=== PATIENT | female | born 1980 | race Caucasian/White ===

== ENCOUNTER 2016-08-02 23:23 | Inpatient (IN) | payer MEDICAID ==
--- NOTE | 2016-08-02 13:24 | HISTORY & PHYSICAL ---
DATE OF ADMISSION: 08/02/16 ATTENDING PHYSICIAN: Nora Ward MD HISTORY OF PRESENTATION: This is a 36-year-old 3, para 0 at 39-2/7 weeks who is presenting for elective Cytotec induction. She actually lives in [place]. 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 She underwent surgery at [facility] on 04/07/16 for removal of this mass. It was benign and she suffered no complications and no signs of labor. PAST MEDICAL HISTORY: Benign except for mild acne. PAST SURGICAL HISTORY: Gaines teeth. SOCIAL HISTORY: She quit tobacco and marijuana with a positive test. Her boyfriend is Ish who has been very involved. 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 FAMILY HISTORY: Her father at age 59 of a myocardial infarction, he was a smoker. MEDICATIONS: vitamins and Tums. She advanced to Prilosec and also used Colace for constipation. ALLERGIES: None. LABS: She is 0 positive. Antibody screen negative. Rubella immune. Serology was nonreactive. Hemoglobin and hematocrit were 13.7 and 40. HIV was nonreactive. Her initial urine culture was negative. Her group B strep was negative. She had first trimester risk assessment which revealed normal chromosomes for trisomy 13, 18 and 21, and she will be having a baby boy. Her MSAFP was negative. Her one-hour glucose tolerance test was 111. She had a negative Pap and HPV test 10/2014. PHYSICAL EXAMINATION VITAL SIGNS: Blood pressure 121/70, weight 155 pounds. HEENT: Normocephalic atraumatic. Pupils equal, round and reactive. Mucous membranes are moist. NECK: Supple with no thyromegaly. CARDIAC: Regular rate and rhythm. LUNGS: Clear. ABDOMEN: Fundal height of 38 cm. Heart tones were in the 140s. OB: Sterile vaginal exam showed a fingertip dilation and about 30% effaced, -2 station. ASSESSMENT AND PLAN: Term of advanced maternal age. Will plan on Cytotec induction. [facility]
[2016-08-03] MEDS ORDERED: HOME MEDICATION LIST NEEDED 1 EA EACH MISC ONE (00:48)
[2016-08-03] MEDS ORDERED: TERBUTALINE SULFATE 1 MG/ML VIAL SQ PRN ×2 (00:48→09:03)
[2016-08-03] MEDS ORDERED: ONDANSETRON HCL 4 MG/2 ML VIAL IV PRN ×3 (00:48→09:03)
[2016-08-03] MEDS ORDERED: MISOPROSTOL 200 MCG TABLET PO PRN ×2 (00:48→09:03)
[2016-08-03] MEDS ORDERED: OXYTOCIN/NORMAL SALINE 30 UNIT/500 ML BAG IV SCH ×2 (00:48→09:03)
[2016-08-03] MEDS ORDERED: MISOPROSTOL 25 MCG CAPSULE VAG SCH (00:48)
[2016-08-03] MEDS ORDERED: LIDOCAINE HCL/PF 1% 30 ML VIAL SUBCUT PRN ×2 (00:48→09:03)
[2016-08-03] MEDS ORDERED: FENTANYL 100 MCG/2 ML VIAL IV ONE (00:48)
[2016-08-03 00:53] LABS: BASOPHILS 0.3 % (0.0-2.0); EOSINOPHILS 0.8 % (0.0-6.0); EOSINOPHILS# 0.1 X 10^3uL (0.0-0.4); HEMATOCRIT 42.5 % (36.0-48.0); HEMOGLOBIN 14.4 g/dL (12.0-16.0); LYMPHOCYTES 29.4 % (20.0-40.0); LYMPHOCYTES# 2.6 X 10^3uL (0.8-3.8); MEAN CELL VOLUME 95.6 fL (80.0-100.0); MEAN CORPUSCULAR HEMOGLOBIN 32.4 pg (29.0-35.0); MEAN PLATELET VOLUME 10.3 fL (7.4-10.4); MONOCYTES 9.1 % (2.0-10.0); MONOCYTES# 0.8 X 10^3uL (0.2-1.0); NEUTROPHILS 60.4 % (54.0-75.0); NEUTROPHILS# 5.4 X 10^3uL (2.6-6.7); PLATELET COUNT 223 X 10^3uL (130-440); RED BLOOD COUNT 4.45 X 10^6uL (4.20-6.10); RED CELL DISTRIBUTION WIDTH 12.7 % (11.5-14.5); WHITE BLOOD COUNT 8.9 X 10^3uL (3.9-10.7)
--- NOTE | 2016-08-03 01:32 | PROGRESS NOTE:Antepartum ---
Assessment and Plan - Date of Encounter Date of Encounter: 08/03/16 (1) Elderly primigravida in third trimester Status: Acute Assessment and plan: Pt given option of expectant management but lives 3.5 hours from hospital She agrees to have cytotec induction of labor. GBS neg. Current Visit: Yes (2) Residence remote from hospital or health care facility Status: Acute Current Visit: Yes - Time Spent With Patient Total time spent with greater than 50% in coordination of care (as documented) at patient's floor/unit and/or counseling patient: SCOUT LEASER: Antepartum PN Subj - Subjective Interval history: 36 hx 2 SAB's presented for elective cytotec induction at 39 3/7 due to distance to hospital. Patient reports: appetite normal, voiding normally Antepartum ROS: contractions (irreg), movement normal, no vaginal bleeding , no loss of fluid, no abdominal pain, no headache, no shortness of breath, no swelling SCOUT LEASER: Antepartum PN Obj Exam - Latest Vital Signs and I&O Latest Vital Signs/I&O: Intake & Output 08/02/16 08/02/16 08/03/16 05:59 17:59 05:59 Weight 70.307 kg - Exam Heart Monitor: category I Lungs: Bilateral: normal Heart Rhythm: Present: regular Heart sounds: Absent: Mur[place]ur Extremities: Absent: edema Cervical Dilatation Degree: 1 Cervical Effacement Percentage: 30 Station: -2 - Lab Labs: Laboratory Last Values WBC 8.9 X 10^3uL (3.9-10.7) 08/03/16 00:20 RBC 4.45 X 10^6uL (4.20-6.10) 08/03/16 00:20 Hgb 14.4 g/dL (12.0-16.0) 08/03/16 00:20 Hct 42.5 % (36.0-48.0) 08/03/16 00:20 MCV 95.6 fL (80.0-100.0) 08/03/16 00:20 MCH 32.4 pg (29.0-35.0) 08/03/16 00:20 MCHC 34.0 g/dL (32.0-36.0) 08/03/16 00:20 RDW 12.7 % (11.5-14.5) 08/03/16 00:20 Plt Count 223 X 10^3uL (130-440) 08/03/16 00:20 MPV 10.3 fL (7.4-10.4) 08/03/16 00:20 Neutrophils % 60.4 % (54.0-75.0) 08/03/16 00:20 Lymphocytes % 29.4 % (20.0-40.0) 08/03/16 00:20 Eosinophils % 0.8 % (0.0-6.0) 08/03/16 00:20 Basophils % 0.3 % (0.0-2.0) 08/03/16 00:20 Neutrophils # 5.4 X 10^3uL (2.6-6.7) 08/03/16 00:20 Lymphocytes # 2.6 X 10^3uL (0.8-3.8) 08/03/16 00:20 Monocytes 9.1 % (2.0-10.0) 08/03/16 00:20 Monocytes # 0.8 X 10^3uL (0.2-1.0) 08/03/16 00:20 Eosinophils # 0.1 X 10^3uL (0.0-0.4) 08/03/16 00:20 Basophils # 0.0 X 10^3uL (0.0-0.1) 08/03/16 00:20
[2016-08-03 01:49] LABS: ABO GROUP TYPE O; ANTIBODY SCREEN NEGATIVE; RH TYPE POSITIVE
[2016-08-03] MEDS: MISOPROSTOL 25 MCG CAPSULE VAGINALLY SCH ×3 (04:28→11:55)
--- NOTE | 2016-08-03 05:55 | PROGRESS NOTE:Antepartum ---
Assessment and Plan - Date of Encounter Date of Encounter: 08/03/16 (1) Elderly primigravida in third trimester Status: Acute Assessment and plan: Pt given option of expectant management but lives 3.5 hours from hospital She agrees to have cytotec induction of labor. GBS neg. Will have to watch FHR. Concerned to have variables this early but in setting of accels. and good variability. Continue current management. Watch closely. Concern shared with patient. 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 Baby has intermittent variables but good variability. Still has accels as well. Patient reports: appetite normal, voiding normally Antepartum ROS: contractions (irreg), movement normal, no vaginal bleeding , no loss of fluid, no abdominal pain, no headache, no shortness of breath, no swelling FACILITY MAINTENANCE MECHANIC: Antepartum PN Obj Exam - Latest Vital Signs and I&O Latest Vital Signs/I&O: Vital Signs Temp 36.4 C L 08/03/16 04:13 Pulse 48 L 08/03/16 04:13 Resp 18 08/03/16 04:13 BP 121/82 08/03/16 04:13 Pulse Ox 93 08/03/16 00:48 Intake & Output 08/02/16 08/02/16 08/03/16 05:59 17:59 05:59 Weight 70.307 kg Other: Voiding Method Toilet - Exam Heart Monitor: category II Lungs: Bilateral: normal Heart Rhythm: Present: regular Heart sounds: Absent: Murrmur Extremities: Absent: edema Cervical Dilatation Degree: 1 Cervical Effacement Percentage: 60 Station: -2 - Lab Labs: Laboratory Last Values WBC 8.9 X 10^3uL (3.9-10.7) 08/03/16 00:20 RBC 4.45 X 10^6uL (4.20-6.10) 08/03/16 00:20 Hgb 14.4 g/dL (12.0-16.0) 08/03/16 00:20 Hct 42.5 % (36.0-48.0) 08/03/16 00:20 MCV 95.6 fL (80.0-100.0) 08/03/16 00:20 MCH 32.4 pg (29.0-35.0) 08/03/16 00:20 MCHC 34.0 g/dL (32.0-36.0) 08/03/16 00:20 RDW 12.7 % (11.5-14.5) 08/03/16 00:20 Plt Count 223 X 10^3uL (130-440) 08/03/16 00:20 MPV 10.3 fL (7.4-10.4) 08/03/16 00:20 Neutrophils % 60.4 % (54.0-75.0) 08/03/16 00:20 Lymphocytes % 29.4 % (20.0-40.0) 08/03/16 00:20 Eosinophils % 0.8 % (0.0-6.0) 08/03/16 00:20 Basophils % 0.3 % (0.0-2.0) 08/03/16 00:20 Neutrophils # 5.4 X 10^3uL (2.6-6.7) 08/03/16 00:20 Lymphocytes # 2.6 X 10^3uL (0.8-3.8) 08/03/16 00:20 Monocytes 9.1 % (2.0-10.0) 08/03/16 00:20 Monocytes # 0.8 X 10^3uL (0.2-1.0) 08/03/16 00:20 Eosinophils # 0.1 X 10^3uL (0.0-0.4) 08/03/16 00:20 Basophils # 0.0 X 10^3uL (0.0-0.1) 08/03/16 00:20 ABO Group Type o 08/03/16 00:20 Rh Factor Positive 08/03/16 00:20 Antibody Screen Negative 08/03/16 00:20
[2016-08-03] MEDS: LACTATED RINGERS 1,000 ML IV SCH ×3 (06:33→15:11)
[2016-08-03] MEDS ORDERED: LACTATED RINGERS 1,000 ML IV ONE (06:36)
--- NOTE | 2016-08-03 06:51 | PROGRESS NOTE:Antepartum ---
Assessment and Plan - Date of Encounter Date of Encounter: 08/03/16 (1) Elderly primigravida in third trimester Status: Acute Assessment and plan: Baby with non reasurring FHT's at only 1 cm and recurrent late decelerations. I do not feel this baby will be able to tolerate labor. Informed consent obtained and family agrees to proceed with LTCS. 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 They last 30-90 seconds. I am not comfortable proceeding with labor given late decelerations at only 1 cm and not in active labor. Plan for LTCS. Discussed concerns with patient and she agrees. Patient reports: appetite normal, voiding normally Antepartum ROS: contractions (irreg), movement normal, no vaginal bleeding , no loss of fluid, no abdominal pain, no headache, no shortness of breath, no swelling S3B MULTI SENSOR OPERATOR: Antepartum PN Obj Exam - Latest Vital Signs and I&O Latest Vital Signs/I&O: Vital Signs Temp 36.5 C 08/03/16 06:21 Pulse 55 L 08/03/16 06:21 Resp 18 08/03/16 06:21 BP 116/76 08/03/16 06:21 Pulse Ox 93 08/03/16 00:48 Intake & Output 08/02/16 08/03/16 08/03/16 17:59 05:59 17:59 Weight 70.307 kg Other: Voiding Method Toilet - Exam Heart Monitor: category III Lungs: Bilateral: normal Heart Rhythm: Present: regular Heart sounds: Absent: Murrmur Extremities: Absent: edema Cervical Dilatation Degree: 1 Cervical Effacement Percentage: 70 Station: -2 - Lab Labs: Laboratory Last Values WBC 8.9 X 10^3uL (3.9-10.7) 08/03/16 00:20 RBC 4.45 X 10^6uL (4.20-6.10) 08/03/16 00:20 Hgb 14.4 g/dL (12.0-16.0) 08/03/16 00:20 Hct 42.5 % (36.0-48.0) 08/03/16 00:20 MCV 95.6 fL (80.0-100.0) 08/03/16 00:20 MCH 32.4 pg (29.0-35.0) 08/03/16 00:20 MCHC 34.0 g/dL (32.0-36.0) 08/03/16 00:20 RDW 12.7 % (11.5-14.5) 08/03/16 00:20 Plt Count 223 X 10^3uL (130-440) 08/03/16 00:20 MPV 10.3 fL (7.4-10.4) 08/03/16 00:20 Neutrophils % 60.4 % (54.0-75.0) 08/03/16 00:20 Lymphocytes % 29.4 % (20.0-40.0) 08/03/16 00:20 Eosinophils % 0.8 % (0.0-6.0) 08/03/16 00:20 Basophils % 0.3 % (0.0-2.0) 08/03/16 00:20 Neutrophils # 5.4 X 10^3uL (2.6-6.7) 08/03/16 00:20 Lymphocytes # 2.6 X 10^3uL (0.8-3.8) 08/03/16 00:20 Monocytes 9.1 % (2.0-10.0) 08/03/16 00:20 Monocytes # 0.8 X 10^3uL (0.2-1.0) 08/03/16 00:20 Eosinophils # 0.1 X 10^3uL (0.0-0.4) 08/03/16 00:20 Basophils # 0.0 X 10^3uL (0.0-0.1) 08/03/16 00:20 ABO Group Type o 08/03/16 00:20 Rh Factor Positive 08/03/16 00:20 Antibody Screen Negative 08/03/16 00:20
[2016-08-03] MEDS ORDERED: MORPHINE SULFATE/PF 10 MG/10 ML VIAL ONE (06:56)
[2016-08-03] MEDS ORDERED: FENTANYL 100 MCG/2 ML VIAL ONE (06:57)
[2016-08-03] MEDS ORDERED: EPHEDrine SULFATE 50 MG/ML VIAL ONE (07:39)
[2016-08-03] MEDS ORDERED: OXYTOCIN 10 UNITS/ML VIAL ONE ×2 (07:40)
[2016-08-03] MEDS ORDERED: ceFAZolin 1 GM/10 ML VIAL ONE (07:53)
[2016-08-03] MEDS ORDERED: DIPHENHYDRAMINE 25 MG CAPSULE PO PRN (09:03)
[2016-08-03] MEDS ORDERED: FENTANYL 100 MCG/2 ML VIAL IV PRN (09:03)
[2016-08-03] MEDS ORDERED: DIPHENHYDRAMINE 50 MG/ML VIAL IV PRN (09:03)
[2016-08-03] MEDS ORDERED: MORPHINE SULFATE 10 MG/ML SYR IV PRN (09:03)
[2016-08-03] MEDS ORDERED: NALOXONE HCL 0.4 MG/ML VIAL IV PRN ×3 (09:03)
[2016-08-03] MEDS ORDERED: NALBUPHINE HCL 10 MG/ML AMP IV PRN (09:03)
[2016-08-03] MEDS ORDERED: SIMETHICONE CHEW 80 MG TABLET PO PRN (09:57)
[2016-08-03] MEDS ORDERED: LANOLIN CREAM 1 APP/7 GM TUBE TOPICAL PRN (09:57)
[2016-08-03] MEDS ORDERED: MAGNESIUM HYDROXIDE 30 ML UDC PO PRN (09:57)
[2016-08-03] MEDS ORDERED: MEPERIDINE HCL/PF 50 MG/ML SYR IV PRN (09:57)
--- NOTE | 2016-08-03 10:12 | OPERATIVE NOTE: C-Section ---
- Operative Report Date of procedure: 08/03/16 Pre-Op Diagnosis: Non-reassuring FHT's remote from delivery Post-op diagnosis: same Procedure: LTCS Anesthesia Type: Spinal Estimated Blood Loss: 700 Pathology: none sent Sponge and instrument counts: correct X-ray taken: No Estimated Gestational Age (weeks): 39 Delivery Presentation: vertex Heart Monitor: category III Intrapartum Events: recurrent late decelerations, recurrant variable decelerations Amniotic Fluid: clear Cord Vessel Description: 3 Vessels Nuchal Cord # of Loops: 0 Cord clamped: Yes Cord blood obtained: Yes at 1 minute: 7 at 5 minutes: 8 Infant Gender: Male Weight: 3.012 kg Delivery Complications: Present: none Narrative: dictated Condition: stable Disposition: floor
[2016-08-03] MEDS ORDERED: MISOPROSTOL 25 MCG CAPSULE VAGINALLY SCH (11:00)
[2016-08-03] MEDS: ACETAMINOPHEN 1,000 MG/100 ML VIAL IV SCH ×3 (11:09→18:25)
--- NOTE | 2016-08-03 14:20 | OPERATIVE REPORT ---
DATE OF ADMISSION: 08/02/16 ATTENDING PHYSICIAN: Nora Ward MD HISTORY: This is a 36-year-old 3, para 0, 2 previous TABs who presented for Cytotec induction. She was 39-3/7 weeks. When she first arrived she a variable, but this was followed by 30 minutes of a reactive strip with excellent accelerations and no variables. She received her first dose of Cytotec. She had occasional variables, but continued to have good variability as well as accelerations. She received a second dose of Cytotec and had increasing frequency of variables that now appear to be late variables. She had 2 episodes where she was down into the 70s for about 2-3 minutes. In between she would have good variability and accelerations but she definitely had a pattern of recurring late decelerations. She was only fingertip and thick, and I was concerned that her infant would not tolerate labor, and after discussion with the patient, we agreed to perform a Caesarean section. PROCEDURE: Patient was taken to the operating room where a spinal anesthetic was placed. A time out was taken and the patient and procedure were correctly identified. She was then prepped and draped in a sterile fashion. She was placed in a supine position with a roll under her right hip. heart tones were 115. I had discussed with her whether she preferred a Pfannenstiel skin incision or to go along her previous vertical incision from her oophorectomy, and she preferred a Pfannenstiel. This was taken down to the fascia with a combination of cautery and blunt technique. The fascia was then incised in the midline and Samson scissors were used to extend to the apices in a curvilinear fashion. The fascia was reflected off of the abdominal wall, first superiorly and then inferiorly. The rectus muscles were exposed and split along their diathesis with the muscle pulling technique. The peritoneum was then entered using blunt dissection. It was pulled and revealed the uterus to be in a midline position. An Eric O-ring was placed in the abdomen for exposure and retraction. An incision was made in the uterus and bladder flap was reflected down. The uterine incision was then extended via a scalpel to the level of the amnion. The amniotic membrane was ruptured, and copious clear fluid was present. The was in vertex position. His head was lifted from the abdomen , followed by his shoulders and body without difficulty. He was handed to Dr. Hawley who was attending the delivery. Cord blood was then obtained. Cord gasses were not indicated. The uterus was manually massaged and the placenta delivered intact. A 3-vessel cord was noted. The lap sponge was used to evacuate any retained membranes, and the uterine wound was then closed with a 0 Chromic running locking suture. A second imbricating layer of 0 Chromic was then applied. There was some scant bleeding from the left apicis of the uterus which a single figure-8 reinforcement suture was applied. Patient had excellent hemostasis. The wound was irrigated with warm saline. I inspected her left ovary which was normal. The peritoneum and rectus muscles were then approximated with several interrupted 0-Chromic sutures. The fascia was closed with a running non-locking 0 PDS suture. The wound was irrigated again, and the skin was closed with a running subcuticular 4-0 Monocryl stitch. A dressing of Benzoin, Steri-Strips, Telfa and 2 ABDs as well as Hypafix tape for a pressure dressing was applied. The uterine contents were evacuated of only a scant amount of blood. The patient was then taken to the floor for recovery. ESTIMATED BLOOD LOSS: 700 mL. APGARS: 7 and 8. INFANT: Baby boy weighing 3,012 grams or 6 pounds, 10 ounces. COMPLICATIONS: None. PLAN: Routine postoperative care. [facility]
[2016-08-03] MEDS: KETOROLAC TROMETHAMINE 30 MG/ML VIAL IV PRN ×2 (15:10→21:15)
--- NOTE | 2016-08-03 17:03 | PROGRESS NOTE:C-section ---
Assessment and Plan - Date of Encounter Date of Encounter: 08/03/16 (1) Elderly primigravida in third trimester Status: Acute Current Visit: Yes (2) Residence remote from hospital or health care facility Status: Acute Current Visit: Yes (3) delivery delivered Status: Acute Assessment and plan: Mom and Baby doing well. Pain well controlled. Dressing dry. No free flow. Enamorado drained clear urine. Current Visit: Yes - Time Spent With Patient Total time spent with greater than 50% in coordination of care (as documented) at patient's floor/unit and/or counseling patient: BONDING AND COMPOSITE FABRICATOR: C-Sec PN Subjective Interval History: Doing well, Pain well controlled. No N/V. SCD's on Post-op Day: 0 Patient reports: pain well controlled, no nausea : doing well, nursing well BONDING AND COMPOSITE FABRICATOR: C-Sec PN Obj Exam - Latest Vital Signs and I&O Latest Vital Signs/I&O: Vital Signs Temp 36.9 C 08/03/16 10:19 Pulse 64 08/03/16 14:01 Resp 14 08/03/16 15:00 BP 95/67 08/03/16 14:01 Pulse Ox 96 08/03/16 14:01 Intake & Output 08/02/16 08/03/16 08/03/16 17:59 05:59 17:59 Intake Total 2300 Output Total 1200 Balance 1100 Weight 70.307 kg 70.307 kg Intake: IV 2000 Right Forearm 2000 Oral 300 Output: Urine 1200 Uretheral (Enamorado) 200 Other: Urine Appearance Clear Urine Color Yellow Uretheral (Enamorado) Pale Yellow Voiding Method Toilet Indwelling Catheter 08/03/16 17:01 - Exam Heart Rhythm: Present: regular Incision: Present: dressed Uterus: Present: firm - Lab Labs: Laboratory Last Values WBC 8.9 X 10^3uL (3.9-10.7) 08/03/16 00:20 RBC 4.45 X 10^6uL (4.20-6.10) 08/03/16 00:20 Hgb 14.4 g/dL (12.0-16.0) 08/03/16 00:20 Hct 42.5 % (36.0-48.0) 08/03/16 00:20 MCV 95.6 fL (80.0-100.0) 08/03/16 00:20 MCH 32.4 pg (29.0-35.0) 08/03/16 00:20 MCHC 34.0 g/dL (32.0-36.0) 08/03/16 00:20 RDW 12.7 % (11.5-14.5) 08/03/16 00:20 Plt Count 223 X 10^3uL (130-440) 08/03/16 00:20 MPV 10.3 fL (7.4-10.4) 08/03/16 00:20 Neutrophils % 60.4 % (54.0-75.0) 08/03/16 00:20 Lymphocytes % 29.4 % (20.0-40.0) 08/03/16 00:20 Eosinophils % 0.8 % (0.0-6.0) 08/03/16 00:20 Basophils % 0.3 % (0.0-2.0) 08/03/16 00:20 Neutrophils # 5.4 X 10^3uL (2.6-6.7) 08/03/16 00:20 Lymphocytes # 2.6 X 10^3uL (0.8-3.8) 08/03/16 00:20 Monocytes 9.1 % (2.0-10.0) 08/03/16 00:20 Monocytes # 0.8 X 10^3uL (0.2-1.0) 08/03/16 00:20 Eosinophils # 0.1 X 10^3uL (0.0-0.4) 08/03/16 00:20 Basophils # 0.0 X 10^3uL (0.0-0.1) 08/03/16 00:20 ABO Group Type o 08/03/16 00:20 Rh Factor Positive 08/03/16 00:20 Antibody Screen Negative 08/03/16 00:20
[2016-08-03] MEDS: DOCUSATE SODIUM 100 MG CAPSULE PO SCH (21:15)
[2016-08-04] MEDS: LACTATED RINGERS 1,000 ML IV SCH (01:22)
[2016-08-04] MEDS: ACETAMINOPHEN 1,000 MG/100 ML VIAL IV SCH ×2 (01:31→06:24)
[2016-08-04] MEDS: KETOROLAC TROMETHAMINE 30 MG/ML VIAL IV PRN (04:06)
[2016-08-04 08:42] LABS: BASOPHILS 0.4 % (0.0-2.0); EOSINOPHILS 1.8 % (0.0-6.0); EOSINOPHILS# 0.2 X 10^3uL (0.0-0.4); HEMATOCRIT 37.6 % (36.0-48.0); HEMOGLOBIN 12.7 g/dL (12.0-16.0); LYMPHOCYTES 22.2 % (20.0-40.0); LYMPHOCYTES# 2.3 X 10^3uL (0.8-3.8); MEAN CELL VOLUME 95.6 fL (80.0-100.0); MEAN CORPUS. HGB CONCENTRATION 33.8 g/dL (32.0-36.0); MEAN CORPUSCULAR HEMOGLOBIN 32.3 pg (29.0-35.0); MEAN PLATELET VOLUME 9.1 fL (7.4-10.4); MONOCYTES 6.5 % (2.0-10.0); MONOCYTES# 0.7 X 10^3uL (0.2-1.0); NEUTROPHILS 69.1 % (54.0-75.0); NEUTROPHILS# 7.2 X 10^3uL (2.6-6.7); RED BLOOD COUNT 3.94 X 10^6uL (4.20-6.10); RED CELL DISTRIBUTION WIDTH 12.4 % (11.5-14.5); WHITE BLOOD COUNT 10.4 X 10^3uL (3.9-10.7)
[2016-08-04] MEDS: DOCUSATE SODIUM 100 MG CAPSULE PO SCH ×2 (08:55→20:40)
--- NOTE | 2016-08-04 08:58 | PROGRESS NOTE:C-section ---
Assessment and Plan - Date of Encounter Date of Encounter: 08/04/16 (1) care following delivery Problem details: S/P LTC/S Status: Acute Assessment and plan: Doing well, will change to oral medications. Ambulate. 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 Post-op Day: 1 Patient reports: appetite normal, pain well controlled, flatus, no dizzy ambulation, no nausea : doing well, nursing well OAKES MACHINE OPERATOR: C-Sec PN Obj Exam - Latest Vital Signs and I&O Latest Vital Signs/I&O: Vital Signs Temp 36.7 C 08/04/16 06:00 Pulse 61 08/04/16 06:00 Resp 16 08/04/16 06:00 BP 102/54 08/04/16 06:00 Pulse Ox 94 08/04/16 06:00 Intake & Output 08/03/16 08/04/16 08/04/16 17:59 05:59 17:59 Intake Total 2300 3650 Output Total 1200 3350 950 Balance 1100 300 -950 Weight 70.307 kg Intake: IV 2000 1250 Right Forearm 2000 1250 Oral 300 2400 Output: Urine 1200 3350 950 Uretheral (Enamorado) 200 800 950 Other: Urine Appearance Clear Clear Urine Color Yellow Yellow Uretheral (Enamorado) Pale Yellow Yellow Yellow Voiding Method Indwelling Catheter Indwelling Catheter # Voids 0 - Exam Lungs: Bilateral: normal Heart Rhythm: Present: regular Extremities: Absent: tenderness Abdomen: Present: soft Bowel sounds: present Incision: Present: well approximated, sutures intact. Absent: erythematous Uterus: Present: firm, non tender - Lab Labs: Laboratory Last Values WBC 10.4 X 10^3uL (3.9-10.7) 08/04/16 08:20 RBC 3.94 X 10^6uL (4.20-6.10) L 08/04/16 08:20 Hgb 12.7 g/dL (12.0-16.0) 08/04/16 08:20 Hct 37.6 % (36.0-48.0) 08/04/16 08:20 MCV 95.6 fL (80.0-100.0) 08/04/16 08:20 MCH 32.3 pg (29.0-35.0) 08/04/16 08:20 MCHC 33.8 g/dL (32.0-36.0) 08/04/16 08:20 RDW 12.4 % (11.5-14.5) 08/04/16 08:20 Plt Count 207 X 10^3uL (130-440) 08/04/16 08:20 MPV 9.1 fL (7.4-10.4) 08/04/16 08:20 Neutrophils % 69.1 % (54.0-75.0) 08/04/16 08:20 Lymphocytes % 22.2 % (20.0-40.0) 08/04/16 08:20 Eosinophils % 1.8 % (0.0-6.0) 08/04/16 08:20 Basophils % 0.4 % (0.0-2.0) 08/04/16 08:20 Neutrophils # 7.2 X 10^3uL (2.6-6.7) H 08/04/16 08:20 Lymphocytes # 2.3 X 10^3uL (0.8-3.8) 08/04/16 08:20 Monocytes 6.5 % (2.0-10.0) 08/04/16 08:20 Monocytes # 0.7 X 10^3uL (0.2-1.0) 08/04/16 08:20 Eosinophils # 0.2 X 10^3uL (0.0-0.4) 08/04/16 08:20 Basophils # 0.0 X 10^3uL (0.0-0.1) 08/04/16 08:20 ABO Group Type o 08/03/16 00:20 Rh Factor Positive 08/03/16 00:20 Antibody Screen Negative 08/03/16 00:20
[2016-08-04] MEDS: IBUPROFEN 600 MG TABLET PO PRN ×2 (11:16→20:40)
[2016-08-04] MEDS: HYDROcodone/APAP 5/325 MG 1 TAB TABLET PO PRN ×2 (11:17→20:41)
[2016-08-05] MEDS: HYDROcodone/APAP 5/325 MG 1 TAB TABLET PO PRN ×3 (02:43→13:37)
[2016-08-05] MEDS: IBUPROFEN 600 MG TABLET PO PRN ×3 (02:43→15:38)
[2016-08-05] MEDS: DOCUSATE SODIUM 100 MG CAPSULE PO SCH (08:37)
[2016-08-05 09:14] VITALS: TEMP 98.2
--- NOTE | 2016-08-05 09:25 | DC SUMMARY: Obstetrical/GYN ---
Discharge Summary: Surg/OB Provider: Date of Admission: 08/02/16 Admitting Provider: BALTAZAR MIXON MD Attending Provider: BALTAZAR MIXON MD Discharging Provider: RORO STEVENS MD Primary Care Provider: Discharge Date: 08/05/16 - Diagnosis (1) care following delivery Status: Acute Hospital Course: Ms. GA is a 36yo with hx 2 SAB's presented for elective Cytotec induction at 39 3/7 due to distance to hospital. She was begun on Cytotec for cervical ripening. Despite an initial Category I tracing the fetus eventually developed a persistent Cat II tracing and was only 1cm dilated. Due to concerns for intolerance of labor she underwent an uncomplicated LTC/S. Her course was unremarkable and she is discharged to home in stable condition. Discharge - Patient/Caregiver Discharge Instructions Activity Level: Abdominal and pelvic rest Diet: Regular Additional Instructions: Discharge Instructions for Dr. Mixon 1. Please make a follow up appointment to see me. 2. Contact me in [place] at [phone] or Scooter Long [phone]. 3. You should use Ibuprofen 600 mg, three times a day for pain. If that is inadequate you may be given a narcotic prescription. Narcotics are very constipating and you should use fiber or Colace to prevent constipation if taking them regularly. You should not drive a car while taking narcotics. 4. Take your vitamins as long as you breast feed or for 6 weeks after delivery. 5. If you are not , wear a jog bra or tight bra for 2 weeks to prevent milk production. Wear this both night and day. If you are having pain , use ice packs and try not to stimulate your nipples. You may also use Ibuprofen and Tylenol. 6. If you are having troubles with breast feeding including pain or sore nipples please call me. Always remind physicians that you are breast feeding if you receive a new medication prescription. 7. To help prevent complications with : a. Ensure good position and latch b. Ensure feeding on demand c. Empty breasts fully d. Use hand expression to help relieve fullness e. Expose breast engorgement to warm water by shower or basin f. Call if unrelieved or if you have questions Scooter Long : Mariela Pantoja, ___[phone] Rosalio Pittman, __[phone]___ 8. Bleeding is normal for 2-6 weeks after delivery. It may be heavier when you exercise or do more activity. If it seems heavy or you are passing clots please call me. 9. Use Pads only for bleeding. Do not use Tampons. 10. If I request you take iron to help build your blood counts back up you can get this over the counter. The most common form is Iron Sulfate 325 mg. Take one daily. It is best taken on an empty stomach with orange juice. 11. Do not have intercourse until 4-6 weeks after you delivery or until you quit bleeding. 12. You may shower or take sitz baths in 3 inches of warm water but do not soak in hot tubs or take deep baths until you quit bleeding (about 4-6 weeks). 13. If you had a , do not lift anything heavier than your baby for 2 weeks, and do not drive for 2 weeks. You may shower. You do not need to wear a bandage. A small amount of drainage from the incision is normal but if it seems excessive or the wound is red or painful please call me immediately. 14. Please dont hesitate to call with any questions. 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 Discharge Exam - Latest Vital Signs and I&O Latest Vital Signs/I&O: Vital Signs Temp 36.3 C L 08/05/16 05:15 Pulse 71 08/05/16 05:15 Resp 16 08/05/16 05:15 BP 110/66 08/05/16 05:15 Pulse Ox 93 08/05/16 05:15 Intake & Output 08/04/16 08/05/16 08/05/16 17:59 05:59 17:59 Output Total 2500 Balance -2500 Output: Urine 2500 Uretheral ([place]) 950 Other: Urine Appearance Clear Clear Urine Color Yellow Yellow Uretheral ([place]) Yellow Voiding Method Toilet Toilet # Voids 1 - Exam Lungs: Bilateral: normal Heart Rhythm: Present: regular Extremities: Absent: tenderness Abdomen: Present: soft Bowel sounds: present Incision: Present: well approximated, sutures intact. Absent: erythematous Uterus: Present: firm, non tender Discharge Summary Data - Medication History Medication History: Home Medications Docusate Sodium [Colace] 100 mg PO DAILY 08/03/16 Omeprazole [Prilosec] 20 mg PO DAILY 08/03/16 Pnv51/Iron Fum/FA/Om-3/Dha/Epa [ Multi + Dha Softgel] 1 cap PO DAILY Inpatient Medications 08/03/16 09:57 HYDROcodone/APAP 5/325 MG [[place]] 1 - 2 tab PO Q4H PRN Lanolin Cream [Lansinoh] 1 kieran TOPICAL PRN PRN Magnesium Hydroxide [Milk of Magnesia] 30 ml PO PRN PRN Simethicone Chew [Mylicon] 80 mg PO Q6H PRN oxyCODONE HCL IR [Oxy Ir] 5 mg PO Q3H PRN 08/03/16 21:00 Docusate Sodium [Colace] 100 mg PO BID 08/04/16 08:54 Ibuprofen [Motrin] 600 mg PO Q6H PRN Procedures and tests throughout hospitalization: Completed Lab Orders 08/03/16 00:20 ABO GROUP [HEM] Urgent ANTIBODY SCREEN [HEM] Urgent CBC AUTO DIF, MDIF/RMOR IF IND [HEM] Urgent RH TYPE [HEM] Urgent 08/04/16 08:20 CBC AUTO DIF, MDIF/RMOR IF IND [HEM] AMDRAW Pending Orders 08/03/16 00:48 Admit: Inpatient Routine Activity: Ambulate TOLERATED Notify Physician . 08/03/16 09:03 Narcan @ bedside x24h after sp .x24hrs Notify Anesthesia . 08/03/16 09:49 K Pad PRN Post Assessment PER PROTOCOL Resuscitation Status Routine Vital Signs Q15MX4,Q30MX2,Q1HX2,Q4H 08/03/16 09:57 HYDROcodone/APAP 5/325 MG [[place]] 1 - 2 tab PO Q4H PRN Lanolin Cream [Lansinoh] 1 kieran TOPICAL PRN PRN Magnesium Hydroxide [Milk of Magnesia] 30 ml PO PRN PRN Simethicone Chew [Mylicon] 80 mg PO Q6H PRN oxyCODONE HCL IR [Oxy Ir] 5 mg PO Q3H PRN 08/03/16 20:00 Transfer to Floor PER PROTOCOL 08/03/16 21:00 Docusate Sodium [Colace] 100 mg PO BID 08/03/16 Breakfast Regular [DIET] 08/04/16 08:54 Ibuprofen [Motrin] 600 mg PO Q6H PRN 08/04/16 09:00 May shower POD #1 08/04/16 Dinner Special Meal ([facility])
[2016-08-05 14:45] VITALS: BP 112/76; PULSE 76; RESP 20; O2SAT 95
== END 2016-08-05 16:00 | disposition home or self-care (01) | DRG 766 ==
LOC: NLCPRO 23:23 → NLC 23:26 → IN 08-03 08:31 → NLC 08-04 20:30
PROVIDERS: ADMIT Family Medicine; ATTEND Family Medicine
PROC: 3E0P7GC Introduction of Other Therapeutic Substance into Female Reproductive, Via Natural or Artificial Opening (ICD-10-PCS; principal; 2016-08-02)
PROC: 10D00Z1 Extraction of Products of Conception, Low, Open Approach (ICD-10-PCS; principal; 2016-08-02)
DX: O76 Abnormality in fetal heart rate and rhythm complicating labor and delivery (principal); O09.523 Supervision of elderly multigravida, third trimester; Z37.0 Single live birth; Z3A.39 39 weeks gestation of pregnancy
CPT/HCPCS: 36415; 85025; 86850; 86900; 86901; C1781; J0690; J1885; J2590; J7120